=== PATIENT | male | born 1955 | race Two or more races ===

== ENCOUNTER 2019-07-21 11:04 | Emergency (ER) | payer MEDICAID ==
[~2019-07-21] VITALS: Ht 167.6 cm; Wt 78.6 kg
[2019-07-21] MEDS ORDERED: DIPH,PERTUSS(ACELL),TET VAC/PF 0.5 ML IM-VACC ONE ×2 (11:30→11:34)
[2019-07-21 11:54] VITALS: BP 167/91
== END 2019-07-21 11:59 | disposition home or self-care (01) ==
LOC: ED 11:53
DX: S60.571A Other superficial bite of hand of right hand, initial encounter (principal); I10 Essential (primary) hypertension; W54.0XXA Bitten by dog, initial encounter; Y93.89 Activity, other specified; Y92.89 Other specified places as the place of occurrence of the external cause; Y99.8 Other external cause status
CPT/HCPCS: 90471; 90715; 99283

== ENCOUNTER 2020-11-13 08:13 | Emergency (ER) | payer SELFPAY ==
[~2020-11-13] VITALS: Ht 162.6 cm; Wt 74.0 kg
--- NOTE | 2020-11-13 08:44 | NUR ---
pt resting in bed. vss. appears in no acute distress.
[2020-11-13 09:22] LABS: BASOPHILS % (AUTO) 1 % (0-1); EOSINOPHILS % (AUTO) 1 % (1-7); LYMPHOCYTES % (AUTO) 32 % (22-44); MEAN CORPUSCULAR HEMOGLOBIN 30.7 pg (27.5-34.5); MEAN CORPUSCULAR HGB CONC 34.2 g/dL (33.2-36.2); MEAN PLATELET VOLUME 9.7 fL (7.4-10.4); MONOCYTES % (AUTO) 13 % (2-9); NEUTROPHILS % (AUTO) 53 % (42-75); PLATELET COUNT 177 x10^3/uL (130-400); RED BLOOD COUNT 4.66 x10^6/uL (4.38-5.82)
[2020-11-13 09:23] LABS: MD NO
[2020-11-13 09:30] LABS: ANION GAP 2 mmol/L (5-15); CALCIUM 8.6 mg/dL (8.5-10.1); CHLORIDE 114 mmol/L (98-107); CREATININE 0.86 mg/dL (0.7-1.3)
[2020-11-13 10:01] VITALS: BP 144/85
== END 2020-11-13 10:20 | disposition home or self-care (01) ==
LOC: ED 10:13
DX: B34.9 Viral infection, unspecified (principal); Z20.828 Contact with and (suspected) exposure to other viral communicable diseases; I10 Essential (primary) hypertension
CPT/HCPCS: 71045; 80048; 85025; 87635; 93005; 99285

== ENCOUNTER 2020-12-15 11:15 | Emergency (ER) | payer MEDICAID, OTHER ==
[~2020-12-15] VITALS: Ht 167.6 cm; Wt 73.5 kg
[2020-12-15 11:21] VITALS: BP 146/74
[2020-12-15] MEDS ORDERED: LOSA50TA14 PO (12:00)
== END 2020-12-15 12:03 | disposition home or self-care (01) ==
LOC: ED 11:40
DX: I10 Essential (primary) hypertension (principal); Z76.0 Encounter for issue of repeat prescription
CPT/HCPCS: 99281